=== PATIENT | male | born 1980 ===

== ENCOUNTER 2016-03-08 16:27 | Emergency (ER) | payer SELFPAY ==
[~2016-03-08] VITALS: Ht 172.7 cm; Wt 87.5 kg
[2016-03-08 16:35] VITALS: Ht 172.7 cm; Wt 87.5 kg
== END 2016-03-08 20:17 | disposition left against medical advice (07) ==
LOC: E/R 16:27
DX: Z53.21 Procedure and treatment not carried out due to patient leaving prior to being seen by health care provider (principal)